=== PATIENT | male | born 1995 | race Two or more races ===

== ENCOUNTER 2023-01-09 09:25 | Emergency (ER) | payer OTHER ==
[2023-01-09 10:06] LABS: BASOPHILS % (AUTO) 0.4 %; EOSINOPHILS # (AUTO) 0.1 10^3/uL (0.0-0.7); EOSINOPHILS % (AUTO) 0.5 %; HCT - HEMATOCRIT 43.6 % (42.0-52.0); HGB - HEMOGLOBIN 15.5 g/dL (14.0-18.0); MEAN CORPUSCULAR HEMOGLOBIN 30.1 pg (27.0-31.0); MEAN CORPUSCULAR HGB CONC 35.6 g/dL (32.0-36.0); MEAN CORPUSCULAR VOLUME 84.7 fL (80.0-94.0); MEAN PLATELET VOLUME 9.1 fL (7.4-11.4); MONOCYTES # (AUTO) 0.5 10^3/uL (0.0-1.0); MONOCYTES % (AUTO) 4.8 %; NEUTROPHILS # (AUTO) 7.4 10^3/uL (1.5-6.6); NEUTROPHILS % (AUTO) 73.9 %; PLT - PLATELET COUNT 316 10^3/uL (130-450); RED BLOOD COUNT 5.15 10^6/uL (4.70-6.10); RED CELL DISTRIBUTION WIDTH 11.8 % (12.0-15.0); WHITE BLOOD COUNT 10.1 x10^3/uL (4.8-10.8)
[2023-01-09 10:08] LABS: BILIRUBIN,URINE NEGATIVE (NEGATIVE); GLUCOSE, URINE (UA) NEGATIVE (NEGATIVE); KETONES,URINE (UA) NEGATIVE (NEGATIVE); LEUKOCYTE ESTERASE, URINE NEGATIVE (NEGATIVE); NITRITE,URINE NEGATIVE (NEGATIVE); OCCULT BLOOD,URINE NEGATIVE (NEGATIVE); PH,URINE 6.5 PH (5.0-7.5); PROTEIN,URINE NEGATIVE (NEGATIVE); UROBILINOGEN,URINE 0.2 (NORMAL) E.U./dL (NORMAL)
--- NOTE | 2023-01-09 10:08 | ED Physician Documentation ---
PD HPI ABD PAIN - Stated complaint Stated Complaint: ABD PX,NAUSEA - Chief complaint Chief Complaint: Abd Pain - History obtained from History obtained from: Patient - History of Present Illness Timing - onset: How many days ago (2) Timing - duration: Days (initially some crampy mid abd pain 2 nights ago then became more consistent yesterday, mid to lower abd with some loose stool and nausea. Overnight last night, did not sleep due to the cramping pain. Has some loose diarrheal stool with blood and some purple to it. No formed stool. Pain worse today.) Timing - details: Gradual onset, Still present Quality: Cramping, Aching, Pain Location: Periumbilical, RLQ, LLQ Radiation: No: Lower back, Left flank, Right flank Improved by: No: Eating, BM Worsened by: Eating, Moving, Palpation. No: Breathing Associated symptoms: Nausea, Diarrhea, Hematochezia, Loss of appetite. No: Fever, Vomiting, Constipation, Dysuria Similar symptoms before: No diagnosis (had an episdoe about a year ago with cramps and blood in stool that lasted couple days then improved. Did not seek evaluation. Did take a week or so before full normal appetite/BMs. 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 Otherwise normal BMs, diet.) Recently seen: Not recently seen Review of Systems Constitutional: denies: Fever, Chills Nose: denies: Rhinorrhea / runny nose, Congestion Throat: denies: Sore throat Respiratory: denies: Cough GI: reports: Abdominal Pain, Nausea, Diarrhea, Bloody / black stool (red to purple blood with some mucous.). denies: Vomiting : denies: Dysuria PD PAST MEDICAL HISTORY - Past Medical History Past Medical History: No Cardiovascular: None Respiratory: None Endocrine/Autoimmune: None GI: None Musculoskeletal: None - Past Surgical History Past Surgical History: No - Present Medications Home Medications: Ambulatory Orders Medication Instructions Recorded Confirmed Amox/Clav 875/125 [Augmentin] 1 each PO Q12H #14 tablet 01/09/23 Docusate Sodium 100Mg Capsule 100 mg PO DAILY #10 cap 01/09/23 [Colace 100Mg Capsule] HYDROcod/ACETAM 5/325 [[place] 5/325] 1 ea PO Q8H PRN #10 tablet 01/09/23 Ondansetron Odt [Zofran] 4 mg TL Q6H PRN #10 tablet 01/09/23 dexAMETHasone [Decadron] 4 mg PO DAILY #5 tablet 01/09/23 - Allergies Allergies/Adverse Reactions: Allergies Allergy/AdvReac Type Severity Reaction Status Date / Time No Known Drug Allergies Allergy Verified 01/09/23 09:34 - Social History Does the pt smoke?: No Smoking Status: Never smoker PD ED PE NORMAL - Vitals Vital signs reviewed: Yes - General General: Alert and oriented X 3, No acute distress, Well developed/nourished - HEENT HEENT: Pharynx benign - Neck Neck: Supple, no meningeal sign, No adenopathy - Cardiac Cardiac: RRR, No murmur - Respiratory Respiratory: Clear bilaterally - Abdomen Abdomen: Normal bowel sounds, Soft, Non distended, No organomegaly, Other (tender with guarding periumbilical and lower abd both left and right but more left. Some percussion tenderness. No rebound. ) - Male Male : Deferred - Rectal Rectal: Deferred - Derm Derm: Normal color, Warm and dry - Neuro Neuro: Alert and oriented X 3, No motor deficit, Normal speech Results - Vitals Vitals: Vital Signs - 24 hr 01/09/23 01/09/23 09:30 12:21 Temperature 36.7 C Heart Rate 81 68 Respiratory 18 18 Rate Blood Pressure 146/97 H 115/60 O2 Saturation 97 100 Oxygen O2 Source Room air - Labs Labs: Laboratory Tests 01/09/23 01/09/23 01/09/23 09:48 09:57 09:57 WBC 10.1 RBC 5.15 Hgb 15.5 Hct 43.6 MCV 84.7 MCH 30.1 MCHC 35.6 RDW 11.8 L Plt Count 316 MPV 9.1 Neut # (Auto) 7.4 H Lymph # (Auto) 2.0 [place] # (Auto) 0.5 Eos # (Auto) 0.1 Baso # (Auto) 0.0 Absolute Nucleated RBC 0.00 Nucleated RBC % 0.0 ESR Sodium 138 Potassium 4.4 Chloride 103 Carbon Dioxide 28 Anion Gap 7.0 BUN 17 Creatinine 0.9 Estimated GFR (MDRD) 101 Glucose 106 H Calcium 10.0 Total Bilirubin 1.4 H AST 23 ALT 49 Alkaline Phosphatase 62 C-Reactive Protein Total Protein 7.7 Albumin 5.2 Globulin 2.5 Albumin/Globulin Ratio 2.1 Lipase 14 Urine Color YELLOW Urine Clarity CLEAR Urine pH 6.5 Ur Specific [place] 1.020 Urine Protein NEGATIVE Urine Glucose (UA) NEGATIVE Urine Ketones NEGATIVE Urine Occult Blood NEGATIVE Urine Nitrite NEGATIVE Urine Bilirubin NEGATIVE Urine Urobilinogen 0.2 (NORMAL) Ur Leukocyte Esterase NEGATIVE Ur Microscopic Review NOT INDICATED Urine Culture Comments NOT INDICATED 01/09/23 01/09/23 09:57 09:57 WBC RBC Hgb Hct MCV MCH MCHC RDW Plt Count MPV Neut # (Auto) Lymph # (Auto) [place] # (Auto) Eos # (Auto) Baso # (Auto) Absolute Nucleated RBC Nucleated RBC % ESR 2 Sodium Potassium Chloride Carbon Dioxide Anion Gap BUN Creatinine Estimated GFR (MDRD) Glucose Calcium Total Bilirubin AST ALT Alkaline Phosphatase C-Reactive Protein < 0.5 Total Protein Albumin Globulin Albumin/Globulin Ratio Lipase Urine Color Urine Clarity Urine pH Ur Specific [place] Urine Protein Urine Glucose (UA) Urine Ketones Urine Occult Blood Urine Nitrite Urine Bilirubin Urine Urobilinogen Ur Leukocyte Esterase Ur Microscopic Review Urine Culture Comments - Rads (name of study) abd/pelvic CT Relevant Findings:: Prelim report reviewed (normal appendix. There is ques tionable colon wll inflammation/thickening in lower descending/sigmoid area. ), EMP independent interpretation of test PD Medical Decision Making - ED course Complexity details: reviewed results (his CT read showing some colitis lower descending/sigmoid area. Given his pain, diarrhea, blood in stool, I would say not questionable clinically. Appendix normal. Will treat as colitis. WBC and ESR are good. Less likely Crohns/UC, but still colitis. ), re-evaluated patient (his pain is improved with IV fluids, Toradol, Zofran, Decadron. He delines further meds. Given antibiotics orally. ), considered differential (lower abd pain worsening. COnsider appendicitis, UTI, colitis, diverticulitis among others. ), d/w patient ED course: given current episode, could be viral GE, food related (gluten/lactose ntolerance though would expect small bowel to be affected by malabsoprtions or infallamtory effect). Consider immune related even with normal ESR. Discussed with pt treatment now but also urged for colonoscopy once well to eval for UC/etc. Departure - Departure Disposition: 01 Home, Self Care Clinical Impression: Abdominal pain, acute, bilateral lower quadrant, Acute hemorrhagic colitis Condition: Stable Record reviewed to determine appropriate education?: Yes Instructions: ED Colitis Ulcerative Follow-Up: ARMIDA LOPEZ DO [Primary Care Provider] - [facility] [Provider Group] Prescriptions: Amox/Clav 875/125 [Augmentin] 1 each PO Q12H #14 tablet Docusate Sodium 100Mg Capsule [Colace 100Mg Capsule] 100 mg PO DAILY #10 cap dexAMETHasone [Decadron] 4 mg PO DAILY #5 tablet HYDROcod/ACETAM 5/325 [[place] 5/325] 1 ea PO Q8H PRN #10 tablet PRN Reason: Pain Ondansetron Odt [Zofran] 4 mg TL Q6H PRN #10 tablet PRN Reason: Nausea / Vomiting Comments: Your blood tests including your white blood cell count are normal. Inflammatory markers called the CRP and ESR are in the normal range as well so less likely pointing to an immune mediated process such as Crohn's or ulcerative colitis. I printed out instructions for colitis since the information is valid on that. However this may be more of a local inflammation or infection. Your appendix was normal on the CT scan. No other abnormality with normal kidneys and organs and no kidney stones etc. We typically treat with some anti-inflammatory as well as an antibiotic. You did not seem to have excessive stool on your CT scan but still decreasing the pressure in the wall of the intestine can be helpful so a mild stool softener. Stay well-hydrated and regular diet is okay. Add ondansetron every 6 hours if needed for nausea. Add Tylenol 500 to 650 mg every 4-6 hours if needed for pain or hydrocodone/acetaminophen if needed for worse pain. I sent prescriptions for all these to the [facility] pharmacy at your request. I would anticipate improvement over the next several days and resolution by 4 to 6 days. Follow-up with your primary care early next week, call for an appointment. Return to the ER if worsening or not improving well with the medicines. It is unusual to have colitis like this in episodes as you have had. It may be prudent once you are well to undergo a diagnostic colonoscopy to ensure there is no obvious underlying ongoing inflammatory process such as Crohn's disease etc. I am prescribing a short course of narcotic pain medication for you. These are potentially dangerous and addictive medications that should be used carefully. These medications may constipate you. Take an [id number] stool softener such as docusate twice daily with plenty of water while taking these medications. If you go 24 hours without a bowel movement, take [id number] MiraLAX, per package instructions. Do not drink or drive while taking these medications. If you received narcotic or sedating medications while in the emergency department do not drive for 24 hours. Store this medication in a safe, secure place and out of reach of children. It is a violation of federal law to give or sell this medication to another person or to use in a manner other than prescribed. The ED will not refill narcotic prescriptions, including prescriptions lost or stolen. You can dispose of unwanted medications at the [facility] office or at several pharmacies such as [facility]. Forms: PCP List Discharge Date/Time: 01/09/23 12:52
[2023-01-09 10:12] LABS: CLARITY,URINE CLEAR (CLEAR)
[2023-01-09 10:17] LABS: ALBUMIN 5.2 g/dL (3.2-5.5); ALBUMIN/GLOBULIN RATIO 2.1 (1.0-2.2); BILIRUBIN,TOTAL 1.4 mg/dL (0.2-1.0); CREATININE 0.9 mg/dL (0.6-1.3); POTASSIUM 4.4 mmol/L (3.5-4.5); TOTAL PROTEIN 7.7 g/dL (6.4-8.9)
[2023-01-09] MEDS ORDERED: KETOROLAC 15 MG/ML VIAL IVP STA (10:24)
[2023-01-09] MEDS ORDERED: SODIUM CHLORIDE 0.9% 1,000 ML IV STA (10:24)
[2023-01-09] MEDS ORDERED: ONDANSETRON 4 MG/2 ML VIAL IVP STA (10:24)
--- NOTE | 2023-01-09 11:35 | CT Report ---
PROCEDURE: ABDOMEN/PELVIS W INDICATIONS: lower abd pain 2 days CONTRAST: Omni 300 100ml TECHNIQUE: After the administration of intravenous contrast, 5 mm thick sections acquired from the diaphragms to the symphysis. 5 mm thick coronal and sagittal reformats were acquired. For radiation dose reducti on, the following was used: automated exposure control, adjustment of mA and/or kV according to yo ent size. COMPARISON: None FINDINGS: Image quality: Excellent. Lung bases and heart: Unremarkable. Liver: There are mild diffuse hepatic steatosis. No liver masses. Gallbladder and biliary tree: No radiopaque stones or wall thickening. No biliary dilation. Spleen: No splenomegaly. Pancreas: No pancreatic ductal dilation. Adrenals: No adrenal nodule. Kidneys and ureters: No hydronephrosis. No renal cystic lesion which requires follow up. No solid mas s. Bowel and peritoneum: No bowel distension. Question mild descending colonic and sigmoid colonic and r ectal wall thickening versus lack of distention.. Normal appendix. Lymph nodes: No central or retroperitoneal adenopathy. Vessels: No infrarenal aortic aneurysm. PELVIS Reproductive organs: Unremarkable. Bladder: No abnormal wall thickening, accounting for underdistension. Pelvic lymph nodes: No pelvic adenopathy by size criteria. Bones: No aggressive osseous abnormality. Other: No significant ventral or inguinal hernia. IMPRESSION: 1. Question nondistended colon from the proximal descending colon through the rectum versus mild wall thickening suggesting colitis. Recommend clinical correlation. Differential diagnosis of colitis wou ld include infectious versus inflammatory colitis. 2. Normal appendix. 3. Very mild diffuse hepatic steatosis. Reviewed by: Surinder Peralta MD on 01/09/2023 11:34 AM PDT Approved by: Surinder Peralta MD on 01/09/2023 11:34 AM PDT Station ID: [id number]
[2023-01-09] MEDS ORDERED: DEXAMETHASONE 10 MG/ML VIAL IVP STA (12:08)
[2023-01-09] MEDS ORDERED: AMOX/CLAV 875 MG/125 MG TABLET PO STA (12:08)
[2023-01-09 12:26] VITALS: BP 115/60; O2SAT 100
[2023-01-09] MEDS ORDERED: iohexoL-300 100 ML VIAL IVP ONE (13:03)
== END 2023-01-09 12:52 | disposition home or self-care (01) ==
LOC: ED 09:25
DX: R10.31 Right lower quadrant pain (principal); R10.32 Left lower quadrant pain; K52.9 Noninfective gastroenteritis and colitis, unspecified
CPT/HCPCS: 36415; 74177; 80053; 81003; 83690; 85025; 85651; 86140; 96361; 96374; 96375; 99284; A9270; Q9967; 81001; 87086